=== PATIENT | female | born 1965 | race Hispanic/Latino ===

== ENCOUNTER → 2018-03-09 | Day surgery (SDC) | payer OTHER ==
[~2018-03-09] MED LIST: FLEXERIL10 MG PO; LOSARTAN POTAS100 MG PO; MOTRIN600 MG PO; NAPROXEN500 MG PO; NORVASC 5MG TAB5 MG PO; ROBITUSSIN W/CO10 ML PO; ZITHROMAX Z-PA250 M1 PO
--- NOTE | 2018-03-09 16:03 | Operative Report ---
Operative/Inv Procedure Report Surgery Date: 03/09/18 Name of Procedure: Cystocele repair with mesh and urethral sling and cystoscopy Pre-Operative Diagnosis: Cystocele grade 3-4 and stress urinary incontinence Post-Operative Diagnosis: Same Estimated Blood Loss: scant (200cc) Surgeon/Junior Oracle Dba: Salma Estrada MD Anesthesia: laryngeal mask airway Implants: Vaginal mesh Complications: None Condition: Stable Operative Indication: Cystocele and stress urinary incontinence Operative/Procedure Note Note: 52yo female with a hx of prlvic organ prolapse for about 6months. She has a vaginal bulge that she notices all the time. She thinks it caused her UTI that she recently was treated for although today's urine shows another UTI. She admits to bothersome urinary frequency as well q20min and wakes 3-4x per night. She has no voiding issues. She experiences daily urinary incontinence. She was given the risks benefits and alternatives of surgical repair of cystocele as well as stress urinary incontinence. All questions were answered and the consent was signed. Patient was taken to the operating room and placed on the table in the supine position. Timeout was performed. IV antibiotics were infused. LMA anesthetic anesthesia was begun. She was then placed in the dorsolithotomy position and prepped and draped in standard sterile fashion after genitalia was shaved. Perez catheter was placed in the bladder was emptied. [place] retractor was placed for optimal vision of the operative field. 1% lidocaine was infiltrated into the anterior vaginal wall the bladder neck to the vaginal apex. An incision was made from the apex to the bladder neck. The anterior vaginal wall was then dissected free from the cystocele with sharp dissection with the Metzenbaum taking care not to injure the bladder. The retropubic space was then entered bluntly with finger dissection down to the sacrospinous process on the right and left side. 6 spinous ligament was cleaned off on both sides. The Coloplast Restoril anterior mesh was then opened and placed after 4 Prolene sutures were placed in the sacrospinous ligaments on the right and left side as well as the arcus tendineus on the right and left side. The mesh was secured in place at these 4 Tashman points and the needles were passed off the field. Methylene blue 10 mL have been given at the start of the case to check on the patency of the ureters after tying down the sacrospinous ligament sutures. Cystoscopy was performed and the bladder was globally inspected. There were no bladder lesions the ureteral orifices were easily identified. There was excellent Deflux from both orifices. The Perez was placed back into the bladder. The surgery was continued. The anterior vaginal wall was irrigated with bacitracin irrigation. Surgicel was placed into the deep retropubic space near the sacrospinous ligament on the patient's right and left side. The incision was closed using running locking 2-0 Vicryl suture every third suture. Attention was then turned to the sling portion of the case. 1% lidocaine was infiltrated into the anterior vaginal wall. Incision was made the need the urethra. Vaginal flaps are created taking care not to injure the urethra. The Altis sling kit was then opened sling was placed using the trochars provided. A nice flat orientation tension-free was obtained and the DeBakeys were placed between the sling and the mesh while the Prolene suture was tightened. Once the sling was seen to be in good position the Prolene suture was cut. There was grossly irrigated with bacitracin irrigation. Incision was closed with running locking every third 3-0 suture. There is no mesh in the vaginal fornices. A cystoscopy performed and no mesh in the bladder or the urethra either. Sponge and needle count were correct at the end of the case. Patient tolerated the procedure well. She was transferred to the recovery room stable condition. Findings: No mesh in the bladder, urethra, or vaginal fornices. Excellent bilateral ureteral Deflux. Discharge Disposition: PACU
== END ==
LOC: STS 02:58
DX: N39.3 Stress incontinence (female) (male) (principal); N39.0 Urinary tract infection, site not specified; N81.10 Cystocele, unspecified; I10 Essential (primary) hypertension; N81.89 Other female genital prolapse; R10.2 Pelvic and perineal pain; R39.14 Feeling of incomplete bladder emptying
CPT/HCPCS: C1771; J0131; J0690; J2250; Q9968